=== PATIENT | female | born 1940 | race Caucasian/White ===

== ENCOUNTER → 2017-07-15 | Outpatient (CLI) | payer OTHER ==
[~2017-07-15] VITALS: Ht 170.2 cm; Wt 56.7 kg
[~2017-07-15] MED LIST: AUGMENTIN 875875 MG PO; CARDIZEM CD120 MG PO; FLECAINIDE ACET50 M1 PO; IBUPROFEN 200200 M1 PO; LEVAQUIN 500 M500 M1 PO; LEVAQUIN 500 M500 M2 PO; LORTAB 5-500 T1 EAC1 PO; MELATONIN5 M1 PO; REMERON15 MG PO; SIMVASTATIN20 MG PO; TRAVATAN Z2.5 ML OPHTHALMIC; TRAZODONE 150150 M1 PO; WAL-FINATE4 MG PO
--- NOTE | ~2017-07-15 | P ---
[facility] [place] [address] PROCEDURE REPORT Name: PINO NIXON Room #: REG [facility]#: [id number] Admission: 07/15/17 Attend Phys: Garcia Lopez MD Discharge: Date of : 38 Report #: [id number] THIS REPORT FOR: //name// CC: Jeffry Lopez DATE OF SERVICE: 07/15/2017 PREOPERATIVE DIAGNOSIS: Supraventricular tachycardia. POSTOPERATIVE DIAGNOSES: Typical atrioventricular linda reentrant tachycardia. PROCEDURES PERFORMED: 1. SVT ablation, CPT code 50389. 2. EP, left atrial pacing and recording, CPT code 01292. 3. Program stimulation and pacing after IV, CPT code 64828. 4. 3D mapping, CPT code 08289. HISTORY OF PRESENT ILLNESS: The patient is a 77-year-old with a history of COPD and recurrent SVT despite antiarrhythmic drug therapy. She is here for an ablation. ANESTHESIA: The patient underwent MAC anesthesia with no anesthesia related complications. PROCEDURE: The patient underwent informed consent where we discussed the details of the procedure including the risks of the procedure include, but are not limited to bleeding, vascular damage, stroke, [place] as well as damage to the [place] conduction system requiring permanent pacemaker. She understood these risks and was willing to proceed. The patient was brought to the EP laboratory in a fasting and sedated state and prepped and draped in a sterile fashion. I injected lidocaine to the bilateral groin regions and obtained access to the bilateral femoral veins with sheaths positioned using the modified Seldinger technique. In the right femoral vein, I placed an 8-Bolivian and two 6-Bolivian short sheaths. In the left femoral vein, I placed a 7-Bolivian locking sheath. Under fluoroscopic guidance, I placed a decapolar catheter easily in the coronary sinus and 3 quadripolar catheters at the HRA, His, and RV positions. At baseline, the patient was in sinus rhythm with a sinus cycle length of 725 milliseconds, TX interval 200 milliseconds, QRS duration 95 milliseconds, QT interval 410 milliseconds, AH interval 100 milliseconds, and HV interval 50 milliseconds. The patient does have frequent PVCs and a right bundle branch block with positive concordance and inferiorly directed. Next, I performed atrial burst pacing and the patient went into SVT immediately. The SVT tachycardia cycle length was 570 milliseconds with a septal VA time of 35 milliseconds. Ventricular entrainment was performed and [facility] [address] [place] [address] PROCEDURE REPORT Name: PINO NIXON Jennifer Room #: REG [facility]#: [id number] Admission: 07/15/17 Attend Phys: Garcia Lopez MD Discharge: Date of : 38 Report #: [id number] there was a VAHV response. I performed this several times. It was difficult to terminate the SVT. Next, I terminated the tachycardia and AV linda ERP was noted at 400 milliseconds at a [address] cycle length, VA block was noted at 380 milliseconds and ventricular ERP was noted at 240 milliseconds at a [address] cycle length. VA conduction was both midline and decremental. I was able to easily re-induce the SVT and this demonstrated a VAHV response consistently. 3D mapping and ablation: Next I removed my HRA catheter and placed a SR0 sheath and a 4-mm Biosense Huntley ablation catheter into the right atrium. I created a detailed geometry of the His bundle and slow pathway region. I performed ablation at 50 levy and 55 degrees, which demonstrated a nice slow junctional response. I performed a total of 3 ablation lesions. There was no compromise to conduction. Post-ablation testing: Post-ablation, AV block was noted at 480 milliseconds and AV linda ERP was noted at 410 milliseconds at a [address] cycle length. Next, isoproterenol infusion was initiated at 1 mcg per minute and testing was continued. AV block was noted at 320 milliseconds and atrial ERP was noted at 220 milliseconds at a [address] cycle length. I saw one AV linda echo during the entire post-ablation testing. We tested for a period of 30 minutes and we could no longer induce supraventricular tachycardia. Post-ablation, the patient was in sinus rhythm with a sinus cycle length of 660 milliseconds, TX interval 205 milliseconds, QRS duration 95 milliseconds, QT interval 350 milliseconds, AH interval 125 milliseconds, and HV interval of 52 milliseconds. As such, all catheters and sheaths were pulled. Hemostasis obtained and the patient awoke neurologically and hemodynamically intact with no complications and no significant bleeding. CONCLUSIONS: 1. Successful ablation of typical AV linda reentrant tachycardia. 2. Normal SA linda function. 3. Normal AV linda function. 4. Normal His-Purkinje function. 5. No other inducible arrhythmias on or off isoproterenol. <ELECTRONICALLY SIGNED> By: Garcia Lopez MD 08/05/17 [id number] Garcia Lopez MD /nt
[2017-07-15 07:06] VITALS: BP 120/58
[2017-07-15 07:11] LABS: ABSOLUTE NEUTROPHILS 4.7 thou/uL (1.4-8.2); BASOPHILS 1.1 % (0.0-2.0); EOSINOPHILS 2.7 % (0.0-3.0); HEMATOCRIT 46.4 % (37.0-47.0); HEMOGLOBIN 15.7 gm/dL (12.0-15.0); LYMPHOCYTES 31.1 % (24.0-44.0); MCH 32.5 pg (26.0-34.0); MCHC 33.9 g/dL (28.0-37.0); MCV 95.9 fL (80.0-100.0); PLATELET COUNT 222 thou/uL (150-400); POLYS 57.1 % (36.0-66.0); RBC 4.84 mil/uL (4.20-5.00); RDW 13.4 % (10.5-14.5); WBC 8.3 thou/uL (4.0-11.0)
[2017-07-15 07:20] LABS: CREATININE 0.8 mg/dL (0.6-1.0); POTASSIUM 3.9 mmol/L (3.5-5.1)
[2017-07-15 07:26] LABS: ALBUMIN 3.8 g/dL (3.4-5.0); TOTAL BILIRUBIN 0.5 mg/dL (<0.1-1.0); TOTAL PROTEIN 7.3 g/dL (6.4-8.2)
[2017-07-15 07:30] LABS: APTT 27.8 Seconds (24.5-32.8); PROTIME 10.4 Seconds (9.3-11.4)
== END | disposition home or self-care (01) ==
LOC: CATH 06:39
PROVIDERS: Internal Medicine Cardiovascular Disease
DX: I47.1 Supraventricular tachycardia (principal); I49.9 Cardiac arrhythmia, unspecified; J44.9 Chronic obstructive pulmonary disease, unspecified; E78.5 Hyperlipidemia, unspecified; N18.9 Chronic kidney disease, unspecified; F17.210 Nicotine dependence, cigarettes, uncomplicated; Z85.118 Personal history of other malignant neoplasm of bronchus and lung; Z98.890 Other specified postprocedural states; Z82.49 Family history of ischemic heart disease and other diseases of the circulatory system; Z88.2 Allergy status to sulfonamides; Z79.899 Other long term (current) drug therapy; Z79.891 Long term (current) use of opiate analgesic
CPT/HCPCS: 62110; 62900; 70005